=== PATIENT | male | born 1945 | race Caucasian/White ===

== ENCOUNTER 2016-06-30 14:00 | Inpatient (IN) | payer OTHER, MEDICARE, SELFPAY ==
[~2016-06-30] VITALS: Ht 182.9 cm; Wt 116.1 kg
--- NOTE | ~2016-06-30 | HP ---
PATIENT'S NAME: MARLENE WHATLEY [facility] AGE: 71 Y [address] ROOM: [id number] [place], [place] [address] LOCATION: [facility] ADMIT DATE: 06/30/2016 History & Physical DISCHARGE DATE: FAMILY PHYSICIAN: PHYSICIAN, UNKNOWN ATTENDING PHYSICIAN: ZAC WASHINGTON DATE OF SERVICE: CHIEF COMPLAINT: Transient slurred speech and left-sided facial weakness as well as left upper and left lower extremity weakness since this morning. HISTORY OF PRESENT ILLNESS: This is a 71-year-old male who says that this morning he woke up complaining of feeling weak in general, but more on the left side of the face as well as the left upper and left lower extremity. He was also having some on and off slurred speech. When he tried to get out of the bed, he was also feeling lightheaded and he was having this unstable gait, but he did not fall. He did not have any syncope. As the time goes by in the morning, his symptoms worsened. Therefore, he went to the outside facility. The patient went to the [facility] in [place]. Over there, the patient was still complaining of the same symptoms. By that time, it was already more than 4.5 hours since the presentation. Over there, the patient had a CT of the brain performed and the head CT given to me by the provider from over there, was unremarkable. No mass. No bleeding. No herniation. Blood work was also performed over there and the basic metabolic panel was unremarkable. Liver function testing was unremarkable. Urinalysis was also unremarkable. Complete blood cell count was also performed and was also unremarkable except for anemia, hemoglobin 11, hematocrit 34, and platelets low at 104. White blood cell was normal at 6.2. INR was 1.1. D-dimer was 0.28. Sodium was normal at 142. Lactic acid was normal at 0.9. Magnesium was also normal at 2.1. CRP was less than 0.2 which is normal. Glucose 115. Troponin was less than 0.017. CPK and CK-MB also normal at the first set. Urine drug screen was performed and showed positive for tricyclic antidepressant. Urine drug screen was negative, but did show positive for urine tricyclic antidepressant. The patient denies taking any antidepressant except taking the venlafaxine, and then I was notified by the outside facility for transfer here. The outside provider was not sure what was going on. I suspected stroke since he was already out of the tPA window and CT of the brain did not show any hemorrhage or any acute abnormality, I instructed the outside provider to give aspirin one dose 81 mg and a full-dose Lipitor 80 mg one time. Just prior to leaving the outside facility to coming here, the outside provider called me again saying that he was hypothermic. Temperature was 94, but the patient still asymptomatic. His physical examination is unchanged. The patient was not confused. He was alert and oriented x3. He has no chest pain. No PATIENT'S NAME: MARLENE WHATLEY [facility] AGE: 71 Y [address] ROOM: [address] [address] LOCATION: [facility] ADMIT DATE: 06/30/2016 History & Physical DISCHARGE DATE: FAMILY PHYSICIAN: PHYSICIAN, UNKNOWN ATTENDING PHYSICIAN: ZAC WASHINGTON shortness of breath. No chills. No fever. No cough. No palpitation. No diarrhea. No nausea. No vomiting. He has no symptoms except some mild weakness in the left side of the face, left upper, and left lower extremity. His speech was also clear. His blood work did not show any findings to suggest a sepsis. The patient got 1 dose of IV vancomycin and 1 dose of IV Zosyn just for the concern of sepsis due to hypothermia. The patient was put on Maribel Hugger, temperature already improved back to normal and Maribel Hugger was stopped. The patient was later transferred here for higher level of care. The patient also received IV fluid bolus. Blood pressure was low in the high 80s, but the patient still remained asymptomatic. After the bolus, blood pressure had remained in the high 120s without dropping anymore. The patient still remained asymptomatic except the mild left-sided upper and lower extremity weakness and left facial weakness. REVIEW OF SYSTEMS: As mentioned in the history of present illness, all other system review are negative, except those mentioned in the history of present illness. PAST MEDICAL HISTORY: 1. COPD, not on home oxygen. 2. Diabetes type 2. 3. Depression, not suicidal. 4. Prior history of myopericarditis. The patient said that it happened about six months ago and he was treated in [place] and has been asymptomatic and cured according to the patient. 5. Hyperlipidemia. 6. Hypertension. 7. Obstructive sleep apnea, not on home CPAP due to noncompliance. 8. Benign prostatic hypertrophy. 9. Gout. 10. Osteoarthritis. 11. Chronic thrombocytopenia. ALLERGIES: NO KNOWN DRUG ALLERGIES ACCORDING TO THE PATIENT. HOME MEDICATIONS: Currently, has been reconciled. I reviewed the medication list that came with the patient and there was no tricyclic antidepressant. SOCIAL HISTORY: The patient was a former cigarette smoker. He quit about 23 years ago. He used to smoke about half pack per day for 3 years. He is a social alcohol drinker. He denies any alcohol use disorder or alcohol withdrawal. He denies any illegal drug use. PATIENT'S NAME: MARLENE WHATLEY [facility] AGE: 71 Y [address] ROOM: [id number] [place], [place] [address] LOCATION: [facility] ADMIT DATE: 06/30/2016 History & Physical DISCHARGE DATE: FAMILY PHYSICIAN: PHYSICIAN, UNKNOWN ATTENDING PHYSICIAN: ZAC WASHINGTON FAMILY HISTORY: Father from brain tumor at age 85 and mother had diabetes and some kind of heart problem that he could not remember all the details. He said his mother from complication from diabetes at advanced age. PAST SURGICAL HISTORY: Status post tonsillectomy. PHYSICAL EXAMINATION: VITAL SIGNS: The time of my dictation, blood pressure 130/75, MAP 81, temperature 97.5, heart rate 56, respirations 12, and saturation 98% on 1 L nasal cannula. GENERAL APPEARANCE: Alert and oriented x3, in no acute distress. A very pleasant male. HEENT: Pupils are equally round and reactive to light. Extraocular muscles are intact. Nasal turbinates are normal bilaterally. Moist oral mucosa. No oral thrush. NECK: No JVD. No cervical lymphadenopathy. CARDIOVASCULAR: Regular rate and rhythm. Normal S1, S2. No murmur. No rubs. No gallops. RESPIRATORY: Clear. Chest wall nontender to palpation. ABDOMEN: Obese, soft, nontender, nondistended, normal bowel sounds, and no hepatosplenomegaly. No palpable mass. EXTREMITIES: No edema in upper or lower extremities. NEUROLOGIC: Alert and oriented x3. Cranial nerves 2-12 intact. No facial droop. No pronator drift. No tongue deviation upon protrusion. Babinski negative, bilaterally. [id number], intact. Azjk-[id number], intact. Sensation, slightly decreased on the left side of the body including the left side of the face all the way down to the left foot. Muscle strength 4/5 on the left upper extremity and on the left lower extremity. Otherwise, sensation and muscle strength intact in other parts of the body. Proprioception, intact. Vibration, intact. Gait, not assessed, due to fall risk. Deep tendon reflex +2 at the bilateral knees and also at the bilateral biceps. LABORATORY DATA: Lactic acid 1.1. CPK 62, troponin less than 0.04. ProBNP 213. White blood cell 4.1, hemoglobin 11.4, hematocrit 34.5, MCV 91, and platelets 99. Glucose 86, BUN 20, creatinine 1.0, sodium 145, potassium 4.1, chloride 111, CO2 25, and calcium 8.7. Total protein 6.7, albumin 3.4, AST 20, ALT 23, alkaline phosphatase 110, total bilirubin 0.5, direct bilirubin 0.1, phosphorus 3.6, and magnesium 2.2. Anion gap 13.1. GFR more than 60. A1c 6.4. INR 1.1. CK- MB 1.8. Free T4 was 0.9. TSH 1.18. Procalcitonin less than 0.05. PATIENT'S NAME: MARLENE WHATLEY [facility] AGE: 71 Y [address] ROOM: [place] [address] LOCATION: [facility] ADMIT DATE: 06/30/2016 History & Physical DISCHARGE DATE: FAMILY PHYSICIAN: PHYSICIAN, UNKNOWN ATTENDING PHYSICIAN: ZAC [place] IMAGING STUDIES: CT of the brain without contrast from the outside facility was unremarkable. This is a verbal report given to me from the outside facility physician. I will request a report to be sent over here. Chest x-ray on admission, unremarkable. EKG from the outside facility; no acute ischemic changes. First-degree AV block. ASSESSMENT/PLAN: 1. Left upper and lower extremity weakness associated with decreased sensation: Probably, the patient has suffered from CVA. My plan will be to go ahead and get MRI of the brain with and without contrast and MRA of the brain and also MRA of the neck. We will get a transthoracic echo in the morning. PT/OT. Continue aspirin 81 mg p.o. daily and Lipitor 80 mg p.o. daily. Check labs in the morning including a lipid panel and A1c, for precaution. Bedside dysphagia screen. If passed, the patient can have a diabetic diet. I will also check the orthostatic vital signs given the patient felt dizzy upon getting up. Cerebellar stroke will also be in the differential, given the patient does have an unsteady gait and MRI of the brain could show that. For now, I want to rule out the stroke. Depending on the finding of MRI of the brain, Neurology consult could be considered. Further plan depends on clinical course. Continue telemetry monitoring. 2. Transient hypothermia and hypotension: The patient was asymptomatic. The patient does not look septic. Repeat blood work here did not show any finding concerning for infection. The patient also does not have any complaints to suggest infection. Blood culture has been obtained, two sets. We will follow up. Urinalysis and urine culture are also being obtained. UA was clean, from the outside facility. Regarding his positive tricyclic antidepressant in the urine, I am going to repeat another urine drug screen here including testing for the urine and presence of tricyclic antidepressant. The patient is not suicidal. The patient does not remember ever taking any medication that belong to the class of tricyclic antidepressant. If the patient becomes hypotensive and there is concern for sepsis, of course antibiotics and IV fluids resuscitation will be given. For now, the patient is hemodynamically stable. 3. First-degree AV block on the EKG: The EKG here show first-degree AV block and some J-point elevation in the anteroseptal leads. The patient has no chest pain. Cardiac enzyme negative in the first set. I will get an echo in the morning, and monitor the patient closely. If any other arrhythmias are detected, we will treat and also consult Cardiology, if necessary. His electrolytes are currently good with the potassium of PATIENT'S NAME: MARLENE WHATLEY [facility] AGE: 71 Y [address] ROOM: [place] [address] LOCATION: [facility] ADMIT DATE: 06/30/2016 History & Physical DISCHARGE DATE: FAMILY PHYSICIAN: PHYSICIAN, UNKNOWN ATTENDING PHYSICIAN: ZAC WASHINGTON more than 4 and magnesium more than 2. Further plan depends on the clinical course. 4. Regarding his hypertension: Currently, medications are being reconciled. I will continue with holding parameters. Avoid beta-arpit due to the presence of first-degree AV block. Also avoid any other agent that could lower the heart rate. 5. Diabetes type 2: Continue with sliding scale insulin while he is in the hospital and titrate as necessary. 6. Chronic obstructive pulmonary disease: At home, he does not use oxygen. He is currently stable, not in flare. 7. Obstructive sleep apnea: He is noncompliant with the CPAP. He does not know his home setting. I will put him on oxygen nasal cannula, if necessary during the night. 8. Deep vein thrombosis prophylaxis: On Lovenox. Watch the platelets closely. Time spent on the day of admission: 50 minutes was spent including chart review, interviewing the patient, examining the patient, and addressing all the questions and concerns that the patient had, and I also went over the plan of care with the patient and ICU nurses. ZAC WASHINGTON MD CC/modl /[id number] D: [id number] T: 453 HISTORY & PHYSICAL
--- NOTE | ~2016-06-30 | DS ---
PATIENT'S NAME: MARLENE WHATLEY [facility] AGE: 71 Y [address] ROOM: [place] [address] LOCATION: [facility] ADMIT DATE: 06/30/2016 Discharge Summary DISCHARGE DATE: 07/02/2016 FAMILY PHYSICIAN: Divya Oswald MD ATTENDING PHYSICIAN: Jose Armando Beebe PRIMARY DIAGNOSES: 1. Transient ischemic attack. 2. Syncope. 3. Diabetes mellitus, type 2. 4. Essential hypertension. 5. Obstructive sleep apnea. 6. Chronic obstructive pulmonary disease. 7. Osteoarthritis, generalized. 8. Chronic thrombocytopenia. 9. Benign prostatic hypertrophy. 10. First-degree atrioventricular block. OPERATIONS AND PROCEDURES: MRI scan of the brain and MRA scan of the brain were performed on 06/30/2016, negative for any acute process. HISTORY OF PRESENTING ILLNESS AND REASON FOR ADMISSION: Please refer to the H and P dictated on 06/30/2016. HOSPITAL COURSE: The patient was admitted to the hospital as noted above with abrupt symptoms of dysarthria, expressive aphasia, and right-sided weakness. These occurred on the date of his evaluation. He did not actually have a syncopal event on that date. He did, however, describe an episode which had occurred a month earlier in which he was "out for 40 minutes." The initial suspicion was for TIA. MRA and MRI scan were obtained as described above. His medical regimen was optimized with statin therapy and antiplatelet therapy with Plavix. Neurology was consulted. He had physical therapy, occupational therapy, and physiatry assessments. He also had speech therapy evaluation. His symptoms had essentially resolved by day #2. Cardiology was also consulted. Because he had first-degree AV block and one 2 to 3-second pause, it was recommended to perform a Holter monitor at discharge. Reference is made to his previous syncopal episode which was never fully evaluated. By the third day of his hospital stay, it was felt he would be stable enough for discharge to home on an adjusted medication regimen and plans for close clinical followup with his primary care provider and outpatient Holter monitor PATIENT'S NAME: MARLENE WHATLEY [facility] AGE: 71 Y [address] ROOM: [place] [address] LOCATION: [facility] ADMIT DATE: 06/30/2016 Discharge Summary DISCHARGE DATE: 07/02/2016 FAMILY PHYSICIAN: Divya Oswald MD ATTENDING PHYSICIAN: Jose Armando Beebe testing. DISCHARGE INSTRUCTIONS: DIET: ADA 2000 calorie per day as tolerated. ACTIVITY: As tolerated. MEDICATIONS: 1. Allopurinol 100 mg p.o. q.h.s. 2. Ascorbic acid 500 mg p.o. q.h.s. 3. Atorvastatin 80 mg p.o. q.h.s. 4. Plavix 75 mg p.o. daily. 5. Ketoconazole cream applied topically b.i.d. 6. Losartan 50 mg p.o. q.h.s. 7. Terazosin 2 mg p.o. q.h.s. 8. Venlafaxine 75 mg p.o. q.h.s. 9. Acetaminophen 650 mg p.o. q.6 hours p.r.n. 10. Tramadol 100 mg p.o. q.6 hours p.r.n. pain. 11. DuoNeb t.i.d. p.r.n. 12. [place] 500 mcg suppository daily p.r.n. 13. Symbicort 160/4.5 one puff p.o. b.i.d. 14. Nitroglycerin p.r.n. 15. Metformin 1700 mg p.o. q.h.s. 16. Combivent Respimat one puff p.o. t.i.d. p.r.n. FOLLOWUP: He will follow up with his primary care physician in 7 to 10 days. He will have follow up with Dr. Huynh, child protective investigator, in 7 to 10 days. He will have Holter monitor x48 hours at discharge, to be followed up by Cardiology. CONDITION ON DISCHARGE: Good. Total time spent on discharge process is 45 minutes. MD COTY PLASENCIA/irving /[id number] d: 07/03/16 1342 t: 07/03/16 1642, DISCHARGE SUMMARY
--- NOTE | ~2016-06-30 | CON ---
PATIENT'S NAME: MARLENE HORNE [facility] AGE: 71 Y [address] ROOM: [id number] [place] [id number] LOCATION: [facility] ADMIT DATE: 06/30/2016 Consultation DISCHARGE DATE: FAMILY PHYSICIAN: Divya Oswald MD ATTENDING PHYSICIAN: ZAC WASHINGTON DATE OF CONSULTATION: 07/01/2016 REFERRING PHYSICIAN: Coleen Huynh MD HISTORY OF PRESENT ILLNESS: Mr. Horne is a very pleasant 71-year-old male patient with a history of mild diabetes mellitus and hypertension. He states that he was in usual state of health, getting his young children ready to go to school, when he suddenly yesterday, Tuesday, noted that he had some difficulty getting words out. It was basically associated with his slurring of speech but not particularly with difficulty with language per se. He said "my words were like I was drunk." He had perhaps a very mild left facial droop, it has persisted even on his transfer here, but now this has resolved. At that time, also, he noted that his walking was off and he was having a staggering of his gait. He denied any particular weakness to his extremities. At baseline, he does have a bit of difficulty with hand chief wharfinger due to a trigger finger on the left hand, but otherwise had normal power on examination. His leg power on the left was also normal. The patient denied any headaches, visual field deficits, numbness to the limbs. He denied again any weakness to his limbs. Yesterday morning, he did go to the emergency room at [place], but he was not a candidate for tPA based upon his symptoms were subtle and also resolving, as well as no evidence of any more severe cortical sign such as aphasia. The patient was then transferred over here for further neurologic management. PRIOR MEDICAL HISTORY: He denies any history of stroke. He denies any history of VA. He has had a workup of pain for chest pain in the past, we have no other information concerning coronary artery disease. SOCIAL HISTORY: He uses alcohol only on a rare occasion, nothing on a usual basis. He stopped smoking 30 years ago. He does not use any illicit drugs. He is a remarried and he has a young children from his second marriage, two children, one 14 years old, one child is 12 years old. He has other children from prior marriage. A total of 10 children. 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 He had plan to go into the pre- study in the 1970s, but he did not and decided to go into language studies. He completed a master's degree for this and is fluent in Latin, Marshallese, Martiniquais, and Australian. He was born in [place], [place] and lives currently in PATIENT'S NAME: MARLENE HORNE [facility] AGE: 71 Y [address] ROOM: [place] [address] LOCATION: [facility] ADMIT DATE: 06/30/2016 Consultation DISCHARGE DATE: FAMILY PHYSICIAN: Divya Oswald MD ATTENDING PHYSICIAN: ZAC WASHINGTON. He gets his medications from the [facility] and [place]. FAMILY HISTORY: Father of a glioma mass in 1985. His mother from complications of diabetes. ALLERGIES: HE HAS NO KNOWN DRUG ALLERGIES. CURRENT HOME MEDICATIONS: Concerning his diabetes and hypertension is follows, 1. Allopurinol 100 mg p.o. at bedtime. 2. Alprostadil to the urethra 500 mcg p.r.n. 3. Ascorbic acid 500 mg at bedtime. 4. Lipitor 40 mg p.o. at bedtime, this dosage has been increased to 80 mg upon this admission. 5. Symbicort 160-4.5 mcg inhaler two puffs inhaled twice daily. 6. Ibuprofen 200 mg tablets, total of 600 mg p.o. q.6 hours p.r.n. pain. 7. Ipratropium/albuterol 0.5/2.5 uses in the nebulizer treatment, one inhalation three times a day p.r.n. 8. Losartan 50 mg p.o. at bedtime. 9. Metformin 850 mg tablets, a total dose of 1700 mg p.o. at bedtime. 10. Nitroglycerin sublingual tablets 0.4 mg tablet q.5 minutes p.r.n. chest pain. 11. Terazosin 2 mg tablet at bedtime. 12. Venlafaxine 37.5 mg tablets, 75 mg p.o. at bedtime. 13. Tramadol 100 mg p.o. q.6 hours p.r.n. pain. REVIEW OF SYSTEMS: This is a 71-year-old male patient with a history of mild diabetes and hypertension. No history of a stroke who presented with slurring of his speech and a mild left facial droop. This lasted a number of hours perhaps up to 3 hours, but the symptoms had progressively resolved in the emergency room in [place], he was transferred here for further workup, there was no evidence of any dysarthric speech presently. Current imaging workup has been negative. The rest of a 10-point review of systems is negative. PHYSICAL EXAMINATION: Vital Signs: The patient's pulse is 65 and regular, respiration rate 12, blood pressure 152/71, temperature is 97.4. NEUROLOGIC: Cranial nerves 2 through 12 was intact. There is normal facial symmetry and sensation. The neck is supple on flexion and extension. The power of the bilateral upper and lower extremities is full at 5/5 grade. He has a slight hand chief wharfinger difficulty due to a trigger finger, but this does not PATIENT'S NAME: MARLENE HORNE [facility] AGE: 71 Y [address] ROOM: [address] [place], [place] [address] LOCATION: [facility] ADMIT DATE: 06/30/2016 Consultation DISCHARGE DATE: FAMILY PHYSICIAN: Divya Oswald MD ATTENDING PHYSICIAN: ZAC WASHINGTON appear to show any weakness and there is no pronator drift. Rapid alternating hand movements and [id number] testing were normal and there was no evidence of any dysmetria. Normal sensory exam to light touch and sharp touch throughout the extremities, and torso reflexes were symmetric at +1 in the upper and lower extremity reflexes tested. Gait was not tested presently. IMPRESSION: The patient's symptoms were fairly benign and rapidly improved, there were concerns which were associated with some mild facial droop on the left, really some dysarthric speech, but there was no evidence to suggest that he had a true aphasia with difficulty in discerning objects, parts of objects, or situations. He is doing well now and he is back to his baseline. With the knowledge of the MRI of the brain as well as MRA of the brain and neck are within normal limits, these symptoms are likely associated with a probable transient ischemic attack. Thus, make some minor adjustments to his current medications, by changing his aspirin to Plavix 75 mg daily. We will also increase the Lipitor to 80 mg daily. His current profile with his cholesterol appears to be good and his LDL is excellent. Check basic hemoglobin A1c to see how his diabetic management is going. Certainly, he does have good knowledge and insight into diabetic management in discussions with the patient. He is on medication, metformin, and he believes that his diabetes is fairly under control, but I do not know if he follows his fingerstick glucose well, certainly good control of diabetic, risk factors, as well as following his blood pressure to make sure the systolic blood pressure is less than 130 mmHg. Long-term best assurance of the diminishing repeat TIAs, we will continue his basic stroke workup here in the hospital with a carotid ultrasound study, and hopefully, the patient will have a short stay here in the hospital. MD JUAN GARCIA/irving /[id number] d: 07/01/16 1726 t: 07/13/16 1544, CONSULTATION REPORT
--- NOTE | ~2016-06-30 | CON ---
PATIENT'S NAME: MARLENE HORNE [facility] AGE: 71 Y [address] ROOM: [address] [address] LOCATION: T ADMIT DATE: 06/30/2016 Consultation DISCHARGE DATE: FAMILY PHYSICIAN: Divya Oswald MD ATTENDING PHYSICIAN: ZAC WASHINGTON DATE OF CONSULTATION: 07/01/2016 REFERRING PHYSICIAN: Coleen Huynh MD Dear Dr. Washington: Thank you for asking me to see Mr. Horne, who is a 71-year-old male patient, who around 5:30 yesterday morning thought that he was wobbly initially. He drove the kids to school, and he was getting progressively worse with some weakness involving the left side of the body as well as some slurring of speech, so he went to the emergency room by 9:15 in the morning. He was transferred here by air ambulance. His symptoms mostly resolved when he woke up around 3:30 in the morning for vital signs. During the time when he was here, his EKG was done which showed first-degree AV block and his monitoring showed that there were three consequent PACs with dropped QRS complexes at the rate of 150 beats a minute. At that time, he had R-to-R interval that was about 2.8 seconds. This is the main reason for consultation. The patient has no prior history of MD or angina. He has, however, been given nitroglycerin to use. He has taken the nitroglycerin about 2 months back for chest pain, which resolved at that time. It is interesting because he did have a cath done in 2014 at [facility] in [place]. At that time, there was some concern about his heart being out of rhythm. He was diagnosed to have pericardial inflammation. He was sent home at that time with medical treatment. For the past year and a half, he has been in functional class III. He does get short of breath going up and down flights of stairs. He thinks it is because of his COPD. He denies paroxysmal nocturnal dyspnea or orthopnea. He has had not had any trouble with lightheadedness, but had a syncopal episode one month ago along with some shortness of breath. He got into his truck and had passed out for about 40 minutes. When he came to, he went to the hospital locally and at that time, did not find any abnormalities. He has not had that recur. He denies any palpitations or ankle swelling. The patient has history of type 2 diabetes. He denies hypertension, elevated cholesterol, tobacco abuse which he quit years ago. There is no family history of premature coronary artery disease. There is no history of MD or rheumatic fever. He does have a history of heart murmur. There is no congestive heart failure, and he has no known atrial PATIENT'S NAME: MARLENE HORNE [facility] AGE: 71 Y [address] ROOM: [place] [address] LOCATION: [facility] ADMIT DATE: 06/30/2016 Consultation DISCHARGE DATE: FAMILY PHYSICIAN: Divya Oswald MD ATTENDING PHYSICIAN: ZAC WASHINGTON diagnosed. His cardiac MRI today reveals no lesions, and there are no carotid lesions or intracranial lesions to account for his symptoms. MEDICATIONS: 1. Clopidogrel 75 mg a day. 2. Atorvastatin 80 mg every day. 3. Tylenol p.r.n. 4. Enoxaparin 40 mg subcu. 5. Aspirin 81 mg a day. 6. Glucagon. 7. Dextrose. 8. Glucose. 9. Insulin. ALLERGIES: NO KNOWN DRUG ALLERGIES. PAST MEDICAL HISTORY: 1. COPD, currently not on home oxygen. 2. Mild depression. 3. History of myopericarditis. 4. Sleep apnea. 5. Benign prostatic hypertrophy. 6. DJD. 7. Chronic thrombocytopenia. SOCIAL HISTORY: The patient is . 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 He is an ex-smoker having quit 23 years ago. He does not drink any alcohol. His appetite and weight are stable. FAMILY HISTORY: No premature coronary artery disease. REVIEW OF SYSTEMS: A 12-point review of systems reveal: 1. Sinus problems. 2. Cough with green phlegm. 3. Gout. 4. Some concern with his prostate. 5. Varicose veins in his legs. 6. Nocturia 4-6 times a night at least. PHYSICAL EXAMINATION: VITAL SIGNS: On examination, his blood pressure is 148/70, heart rate is in PATIENT'S NAME: MARLENE HORNE [facility] AGE: 71 Y [address] ROOM: [place] [address] LOCATION: [facility] ADMIT DATE: 06/30/2016 Consultation DISCHARGE DATE: FAMILY PHYSICIAN: Divya Oswald MD ATTENDING PHYSICIAN: ZAC WASHINGTON the 70s and regular, respiration is 18, and afebrile. HEENT: Normal. NECK: Supple with no JVD, thyromegaly, lymphadenopathy, or carotid bruit. CARDIAC: PMI is not well located. First and second heart sounds are regular. There are no added sounds or murmurs. CHEST: Clear to auscultation. ABDOMEN: Obese, soft. EXTREMITIES: Reveal no edema. CENTRAL NERVOUS SYSTEM: Intact. ASSESSMENT: A 71-year-old hypertensive, diabetic patient with transient ischemic attack- like symptoms involving the left side of his body, slurred speech, and being wobbly which resolved within 24 hours. His MRI and MRA are negative for any central nervous system lesions or extracranial or intracranial vascular abnormalities. His EKG shows first-degree AV block with some PACs occurring at the rate of 150 beats per minute without any QRS complexes. This raises the possibility that he may have underlying atrial fibrillation. He also has a history of chest pain, but had also recently a cardiac catheterization done and myocarditis diagnosed. He has had a passing-out spell about a month ago. The etiology of this is unclear. He was out for 40 minutes. He is currently in functional class III. RECOMMENDATIONS: We will get hold of all the records he has from [facility] and look at his echo before making any other additional plans. Again, I appreciate this opportunity to participate in the care of Mr. Horne. MD REID GUSMAN/irving /[id number] d: 07/01/162008 t: 07/13/16 1326, CONSULTATION REPORT
--- NOTE | ~2016-06-30 | ECHO ---
Transthoracic Echocardiography Report (TTE) Demographics Patient Name MARLENE WHATLEY Date of Study 07/01/2016 Patient Number [id number] Visit Number [id number] Date of 1945 Room Number G6221 Accession Number [id number] Gender Male Age 71 year(s) Referring Concepción Hyman MD Tape Keller Operator Silver Fraser T Physician Physician Interpreting Amina Horne Soil [employer] Plant Scientist Physician Supervising Ordering Physician Concepción Hyman MD, MD/MLP Nurse Stress Electrical Systems Drafter Conclusions Summary The estimated left ventricular ejection fraction is 60% with normal WM.Moderate concentric left ventricular hypertrophy.Normal internal dimensions. The left atrium is mildly dilated. Increased LA pressures. MAC. Moderate MR. Moderate calcification of the mitral valve. The mitral regurgitation jet is anteriorly directed . Mild tricuspid regurgitation by color Doppler. There is moderate pulmonary hypertension. The pulmonary pressure (RVSP) is 44 mmHg. The ascending aorta appears mildly dilated. The maximum diameter measures 4.0 cm. Procedure Type of Study TTE procedure:2D Echocardiogram, M-Mode, Doppler . Procedure Date Date: 07/01/2016 Start: 09:29 AM Study Location: Inpatient Portable Technical Quality: Adequate visualization Indications:Bradycardia. Patient Status: Routine HR: 66 bpm BP: 151/82 mmHg M-Mode/2D Measurements LV Diastolic Dimension: 3.32 cm LV Systolic Dimension: 2.35 cm LV Septum Diastolic: 1.85 cm LV PW Diastolic: 1.7 cm AO Root Dimension: 2.3 cm Cardiac Output: 9.14 l/min AV Cusp Separation: 1.9 cm RV Diastolic Dimension: 3.83 cm LA volume: 76 ml LVOT: 2 cm LVOT VTI: 44.1 cm TAPSE: 2.8 cm LV Stroke volume: 138.47 ml Doppler Measurements AV Peak Velocity: 1.95 m/s MV Peak E-Wave: 1.5 m/s AV Peak Gradient: 15.21 mmHg MV Peak A-Wave: 1.32 m/s AV Mean Gradient: 12 mmHg MV E/A Ratio: 1.14 LVOT Peak Velocity: 1.83 m/s MV P1/2t: 91 msec TR Gradient:34.11 mmHg PV Peak Velocity: 0.99 m/s Estimated RAP:10 mmHg PV Peak Gradient: 3.94 mmHg Estimated RVSP: 44 mmHg Estimated PASP: 44.11 mmHg E' Septal Velocity: 0.05 m/s A' Septal Velocity: 0.07 m/s E' Lateral Velocity: 0.07 m/s A' Lateral Velocity: 0.1 m/s Findings Left Ventricle Moderate concentric left ventricular hypertrophy with normal internal dimensions,EF and WM. Right Ventricle Normal right ventricle structure and function. Left Atrium The left atrium is mildly dilated.Inreased LA pressures. Right Atrium Normal right atrial size. Mitral Valve Moderate mitral regurgitation by color Doppler. Moderate calcification of the mitral valve. MAC. Aortic Valve There is trivial aortic regurgitation by color Doppler. The aortic valve is moderately sclerotic. Tricuspid Valve Mild tricuspid regurgitation by color Doppler. There is moderate pulmonary hypertension. The pulmonary pressure (RVSP) is 44 mmHg. Pulmonic Valve Trivial pulmonic valve regurgitation by color Doppler. Pericardial Effusion No evidence of pericardial effusion. Miscellaneous The ascending aorta appears mildly dilated. The maximum diameter measures 4.0 cm. Pleural Effusion No evidence of pleural effusion. Contractility Score LV regional wall motion:(0-Non visualized 1-Normal 2-Hypokinesis 3-Akinesis 4-Dyskinesis 5-Aneurysm) Signature dtt: Coleen Huynh dtd: 07/01/16 0929 Physician Self Edit
[2016-06-30 16:29] LABS: BASOPHIL % 0.7 %; EOSINOPHIL # 0.3 K/uL (0.0-0.5); EOSINOPHIL % 6.6 %; HEMATOCRIT 34.5 % (37.0-53.0); HEMOGLOBIN 11.4 g/dL (11.0-16.0); IMMATURE GRANULOCYTE % 0.2 %; LYMPHOCYTE % 25.6 %; MCH 30.1 pg (27.0-34.0); MONOCYTE # 0.3 K/uL (0.0-1.0); MONOCYTE % 6.4 %; MPV 10.1 fl (9.4-12.4); NEUTROPHIL # (ANC) 2.5 K/uL (1.4-9.0); NEUTROPHIL % 60.5 %; NRBC % 0 /100WBC (0-0.00); PLATELET COUNT 99 K/uL (150-450); RBC 3.79 M/uL (3.50-5.50); RDW-CV 13.9 % (11.9-14.6); WBC 4.1 K/uL (4.0-11.0)
[2016-06-30 16:41] LABS: INR - (THERAPEUTIC) 1.1 (0.9-1.1); PROTIME 11.2 SECONDS (9.6-11.1)
[2016-06-30 16:52] LABS: ALBUMIN 3.4 gm/dL (3.5-5.0); ALK PHOS 110 IU/L (33-138); ALT 23 IU/L (12-78); ANION GAP 13.1 (10.0-19.0); AST 20 IU/L (10-40); BLOOD UREA NITROGEN 20 mg/dL (6-24); CALCIUM 8.7 mg/dL (8.5-10.5); CHLORIDE 111 mMol/L (96-110); CO2 25 mMol/L (22-32); CPK 62 IU/L (35-332); ESTIMATED GFR (MDRD EQUATION) > 60; MAGNESIUM 2.2 mg/dL (1.3-2.6); PHOSPHORUS 3.6 mg/dL (2.5-4.9); POTASSIUM 4.1 mMol/L (3.7-5.1); SODIUM 145 mMol/L (135-145); TOTAL BILIRUBIN 0.5 mg/dL (0.0-1.5); TOTAL PROTEIN 6.7 g/dL (6.0-8.4)
[2016-06-30 20:49] LABS: AMPHETAMINE NEGATIVE (NEGATIVE); BARBITURATE NEGATIVE (NEGATIVE); COCAINE NEGATIVE (NEGATIVE); OPIATES NEGATIVE (NEGATIVE)
[2016-07-01] MEDS ORDERED: DUONEB INH (09:14)
[2016-07-01] MEDS ORDERED: SYMBICORT 16010.2 GM INH (09:16)
[2016-07-01] MEDS ORDERED: MUSE500 MCG UR (09:16)
[2016-07-01] MEDS ORDERED: COZAAR100 MG PO (09:17)
[2016-07-01] MEDS ORDERED: NITROSTAT0.4 MG SL (09:18)
[2016-07-01] MEDS ORDERED: LIPITOR80 MG PO (09:20)
[2016-07-01] MEDS ORDERED: ZYLOPRIM100 MG PO (09:20)
[2016-07-01] MEDS ORDERED: TYLENOL325 MG PO (09:20)
[2016-07-01] MEDS ORDERED: NIZORAL30 GM TOP (09:22)
[2016-07-01] MEDS ORDERED: HYTRIN **IA 9/2 MG PO (09:23)
[2016-07-01] MEDS ORDERED: GLUCOPHAGE850 MG PO (09:23)
[2016-07-01] MEDS ORDERED: ULTRAM50 MG PO (09:24)
[2016-07-01] MEDS ORDERED: VENLAFAXINE H37.5 MG PO (09:24)
[2016-07-01] MEDS ORDERED: ASCORBIC ACID500 MG PO (09:25)
[2016-07-01] MEDS ORDERED: ADVIL200 MG PO (09:25)
[2016-07-01] MEDS ORDERED: COMBIVENT RESPIM4 GM INH (09:25)
[2016-07-02] MEDS ORDERED: PLAVIX75 MG PO (13:56)
== END 2016-07-02 14:57 | disposition disaster alternative care site (69) | DRG 69 ==
LOC: GNTU 14:50 → GICU 14:50 → GNTU 07-01 12:19
PROVIDERS: ADMIT Internal Medicine
DX: G45.9 Transient cerebral ischemic attack, unspecified (principal); D69.6 Thrombocytopenia, unspecified; J44.9 Chronic obstructive pulmonary disease, unspecified; I44.0 Atrioventricular block, first degree; I10 Essential (primary) hypertension; E11.9 Type 2 diabetes mellitus without complications; G47.33 Obstructive sleep apnea (adult) (pediatric); Z91.19 Patient's noncompliance with other medical treatment and regimen; F32.9 Major depressive disorder, single episode, unspecified; E78.5 Hyperlipidemia, unspecified; N40.0 Benign prostatic hyperplasia without lower urinary tract symptoms; M10.9 Gout, unspecified; Z87.891 Personal history of nicotine dependence; Z79.82 Long term (current) use of aspirin; Z23 Encounter for immunization; R55 Syncope and collapse
CPT/HCPCS: A9577; G0009; G0480; J1650; J7030

== ENCOUNTER → 2016-06-30 | Outpatient (CLI) | payer OTHER, MEDICARE ==
[~2016-06-30] MED LIST: ADVIL200 MG PO; ASCORBIC ACID500 MG PO; ASPIRIN (CHILDR81 MG PO; COMBIVENT RESPIM4 GM INH; COZAAR100 MG PO; DELTASONE20 MG PO; DOXYCYCLINE100 MG PO; DUONEB INH; FEOSOL325 MG PO; GLUCOPHAGE850 MG PO; HYTRIN **IA 9/2 MG PO; LIPITOR80 MG PO; MUSE500 MCG UR; NITROSTAT0.4 MG SL; NIZORAL30 GM TOP; PLAVIX75 MG PO; PROTONIX40 MG PO; SYMBICORT 16010.2 GM INH; TYLENOL325 MG PO; ULTRAM50 MG PO; VENLAFAXINE H37.5 MG PO; ZITHROMAX250 MG PO; ZYLOPRIM100 MG PO
== END | disposition disaster alternative care site (69) ==
LOC: GAIR 14:11
DX: I44.0 Atrioventricular block, first degree (principal); E11.9 Type 2 diabetes mellitus without complications; F32.9 Major depressive disorder, single episode, unspecified; E78.5 Hyperlipidemia, unspecified; M19.90 Unspecified osteoarthritis, unspecified site; I10 Essential (primary) hypertension; G47.30 Sleep apnea, unspecified; R41.82 Altered mental status, unspecified; R47.81 Slurred speech; J44.9 Chronic obstructive pulmonary disease, unspecified; Z79.899 Other long term (current) drug therapy; Z88.8 Allergy status to other drugs, medicaments and biological substances
CPT/HCPCS: A0422; A0431; A0436

== ENCOUNTER 2016-12-23 13:00 | Inpatient (IN) | payer OTHER, MEDICARE ==
[~2016-12-23] VITALS: Ht 180.3 cm; Wt 112.0 kg
--- NOTE | ~2016-12-23 | ESTC ---
Cardiac Perfusion Imaging Demographics Patient Name CHACORTA Albrecht Gender Male Patient Number [id number] Race Visit Number [id number] Ethnicity Corporate ID Room Number G6310 Accession Number [id number] Height 71 inches Date of 1945 Weight 254 pounds [place] BUENO Interpreting Dary Hsieh Date of study 12/24/2016 Physician Supervising /TARI PATEL Technologist Tara Gong MD Ordering Physician Joe Segundo Stress A emergency medical technician Stress ECG Reading Joe Segundo Nurse Lita Albrecht Physician A MD LENORA Robles The procedure was explained in detail to the patient. Risks, complications and alternative treatments were reviewed. Written consent was obtained. Medications Reviewed with Patient prior to Procedure. Procedure Procedure Type: Nuclear Stress Test:Pharmacological, Cardiolite Stress Test Procedure Start time: 12/24/2016 08:30 Indications: Chest pain. Risk Factors The patient risk factors include:obesity, cerebrovascular disease, former tobacco use, treated hypercholesterolemia, treated hypertension, orally-treated diabetes mellitus, chronic lung disease and dyslipidemia. Conclusions Summary Perfusion Images: The overall quality of the study is good. Left ventricular cavity is noted to be normal on the stress and rest studies. There is no evidence of abnormal lung activity. The right ventricle is not visualized and cannot be assessed. Stress SPECT images and Rest SPECT images demonstrate homogenous tracer distribution throughout the myocardium except for a minimal decrease uptake in the area involving the chano-septum on stress images suggesting equivocal small area of ischemia in anterior septal wall . Gated SPECT imaging reveals normal myocardial thickening and wall motion. The left ventricular ejection fraction was calculated to be 71%. Impression ECG portion of the stress test is clinically negative for ischemia by diagnostic criteria. Images reveal a small sized area of equivocal anteroseptal wall ischemia. Gated wall motion is normal with LVEF 71%. This is a low risk stress test. Stress Protocols Resting ECG Sinus bradycardia. PVCs Pre-stress physical exam: Patient assessed by Dr Diaz prior to testing. Stress Protocol:Pharmacologic Predicted HR: 148 bpm ECG Findings No ECG changes suggestive of ischemia. Arrhythmias No new rhythm abnormality. Symptoms Chest tightness. Stress Interpretation Appropriate hemodynamic response to Lexiscan. No significant ST-T wave changes with Lexiscan. ECG portion is negative for ischemia by diagnostic criteria. Imaging Results Summed scores - Summed stress score: 9 - Summed rest score: 5 - Summed difference score: 4 Stress ejection Ejection fraction:71 % EDV :123 ml ESV :36 ml Stroke volume :87 ml LV mass :137 gr Imaging Protocols Rest Stress Isotope:Tc99m Sestamibi IV Isotope: Tc99m Sestamibi IV Isotope dose:15.3 mCi Isotope dose:44.8 mCi Date:12/24/2016 06:53 Date:12/24/2016 09:15 Technique: SPECT Technique: Gated Supine SPECT Supine IV remains in place after procedure. Scan Time:45-60 minutes post Scan Time:45-60 minutes post injection injection Procedure Medications - Regadenoson (Lexiscan) 0.4 mg IV over 10-15 sec. I.V. 0.4 mg. Medical History Admission Data Admission date: 12/23/2016 Admission Time: 14:53 Hospital Status: Inpatient. Signatures dtt: ART PAIZ dtd: 12/24/16 0830 Physician Self Edit
--- NOTE | ~2016-12-23 | CON ---
PATIENT'S NAME: MARLENE WHATLEY [facility] AGE: 71 Y [address] ROOM: [place] [address] LOCATION: GPCU ADMIT DATE: 12/23/2016 Consultation DISCHARGE DATE: FAMILY PHYSICIAN: CLARK HERBERT MD ATTENDING PHYSICIAN: Ted GONZALEZ REQUESTING PHYSICIAN: Hospitalist Service. REASON FOR CONSULTATION: Angina. HISTORY OF PRESENT ILLNESS: This is a 71-year-old gentleman, who lives in the [place] area. He says that first he got sick last Tuesday and he developed nausea, lack of appetite, and weakness with minor exertion. He thought he had some type of flu. The next day because his symptoms did not improve, he went to the emergency room. There, the main complaint appeared to be shortness of breath on exertion, so it was treated like COPD exacerbation with nebulizer and discharged home on antibiotics and steroids. He says that he took these medications religiously. At that time, his hemoglobin was 12. He continued to feel weak. The next day, he had large tarry stool. He thought maybe he had some gastric problems, but did not contact his doctor, continued to take all his medications which include Plavix that was prescribed for transient ischemic attack. He got progressively worse and went back to [facility] on the and then evaluation showed that his hemoglobin at that point was 7 g, so they made arrangements to transfer him here and start transfusing him. The patient says that he is experiencing some tightness at the base of his sternum and continues to have some shortness of breath as well. PAST MEDICAL HISTORY: Shows type 2 diabetes, hypertension, dyslipidemia, and as mentioned COPD. There is a diagnosis of coronary artery disease with 30% stenosis in the LAD identified on catheterization in March 2015. He also has sleep apnea, fatty liver, erectile dysfunction, gout, and osteoarthritis. SURGICAL HISTORY: Only tonsillectomy. SOCIAL HISTORY: The patient is . He is an ex-smoker and does not abuse alcohol. FAMILY HISTORY: His father had glioblastoma. His mother was diabetic. REVIEW OF SYSTEMS: PATIENT'S NAME: MARLENE WHATLEY [facility] AGE: 71 Y [address] ROOM: [address] [address] LOCATION: GPCU ADMIT DATE: 12/23/2016 Consultation DISCHARGE DATE: FAMILY PHYSICIAN: CLARK HERBERT MD ATTENDING PHYSICIAN: Ted GONZALEZ Review of systems was performed. Positives mentioned in the history of present. PHYSICAL EXAMINATION: VITAL SIGNS: The patient is 5 feet 11 inches and weighs 112.1 kg. Blood pressure is 126/60, heart rate of 60. He is afebrile. GENERAL: He is alert and oriented. He looks pale. SKIN: Warm and dry. He is being transfused 1 unit of packed red cells. HEAD: Normocephalic, atraumatic. NECK: Supple. There is no jugular venous distention. No carotid bruits. LUNGS: Clear. HEART: Distant regular first and second heart sounds. ABDOMEN: Mildly obese, nontender. EXTREMITIES: Lower extremities: No peripheral edema. DIAGNOSTICS DATA: Electrocardiogram shows sinus rhythm, premature ventricular contractions, left ventricular hypertrophy. No acute changes. Troponin is negative. X-ray: Normal heart size and normal vasculature. Pro-BNP is 2500. Hemoglobin 7.5. OUTPATIENT MEDICATIONS: 1. Ipratropium. 2. Albuterol. 3. DuoNeb three times a day as needed. 4. Alprostadil 500 mcg daily for erectile dysfunction. 5. Symbicort 160 two puffs twice a day. 6. Losartan 50 mg daily. 7. Nitroglycerin 0.4 as needed. 8. Acetaminophen 325, 650 mg every 6 hours for pain. 9. Atorvastatin 80 mg daily. 10. Allopurinol 100 mg daily. 11. Metformin 1700 mg at bedtime. 12. Terazosin 2 mg at bedtime. 13. Venlafaxine 37.5 mg capsules at bedtime. 14. Tramadol 100 mg every 6 hours for pain. 15. Ascorbic acid 500 mg daily. 16. Combivent 1 puff 3 times a day. 17. Clopidogrel 75 mg daily. PATIENT'S NAME: MARLENE WHATLEY [facility] AGE: 71 Y [address] ROOM: [id number] [place] [id number] LOCATION: GPCU ADMIT DATE: 12/23/2016 Consultation DISCHARGE DATE: FAMILY PHYSICIAN: CLARK HERBERT MD ATTENDING PHYSICIAN: Ted GONZALEZ 18. Prednisone 20 mg daily. 19. Azithromycin 250 mg daily. 20. Doxycycline 100 mg twice a day. IMPRESSION: The patient presents with acute anemia from blood loss. He has some angina at rest which could be just from mismatch of supply and demand. He does not appear to have an acute coronary syndrome. We will continue transfusion. We will do a nuclear stress test in a.m. We will check an echocardiogram, appears to have some heart failure, probably diastolic. Thank you for allowing me to participate in the care of your patient. I will follow along with you. ARSENOTISCLIFFORD DAVID MD PE/modtuyet /[id number] d: 12/24/166 t: 12/27/16 1119, CONSULTATION REPORT
--- NOTE | ~2016-12-23 | HP ---
PATIENT'S NAME: MARLENE WHATLEY [facility] AGE: 71 Y [address] ROOM: [address]6310 [place], [place] [address] LOCATION: [facility] ADMIT DATE: 12/23/2016 History & Physical DISCHARGE DATE: FAMILY PHYSICIAN: PHYSICIAN, UNKNOWN ATTENDING PHYSICIAN: Ted GONZALEZ DATE OF SERVICE: CHIEF COMPLAINT: GI bleed. HISTORY OF PRESENT ILLNESS: The patient is a 71-year-old gentleman with past medical history of diabetes mellitus type 2, COPD, BPH, and history of TIA, who presents here with low hemoglobin from [place]. The patient reports that on December 19, 2016, he was feeling dyspnea on exertion and chest discomfort on exertion. The patient went to primary care physician and was treated with bronchodilator with some improvement in symptom. The patient was discharged on doxycycline and prednisone and bronchodilator. However, the patient reports that after he was discharged, he did not feel much better and also reports one episode of tarry stool on Tuesday. He reports that his symptoms did not improve, and he continued to have dyspnea on exertion and chest discomfort on exertion. He reports his chest discomfort as pressure-like, nonradiating, and rates it 2- 3/10 and resolved with rest. The patient went to the emergency department with the same complaint today at [place] and was found to have hemoglobin of 7. Initial workup at the hospital including EKG and cardiac enzymes including troponin was negative. The patient was given initially 4 pills of 81 mg aspirin on presentation. Of note, the patient takes Plavix and also takes 81 mg of aspirin as outpatient due to history of TIA. The patient has already taken the Plavix 81 mg and also received 4 doses of baby aspirin. The patient denies any productive cough, fever, chills, nausea, vomiting, abdominal pain, and diarrhea. Last stool movement was on Tuesday and it was tarry. MEDICAL HISTORY: Diabetes mellitus type 2, COPD, BPH, and TIA. PAST SURGICAL HISTORY: Tonsillectomy and has had coronary angiogram done [place] a year and half ago with apparently no coronary lesion and was told it was possibly heart failure and was discharged on Lasix. FAMILY HISTORY: Father had history of GBM. Mother has diabetes mellitus. The patient currently does not smoke. Last smoke was 25 years ago and occasional alcohol PATIENT'S NAME: PATZEL, [facility] AGE: 71 Y [address] ROOM: [place] [address] LOCATION: [facility] ADMIT DATE: 12/23/2016 History & Physical DISCHARGE DATE: FAMILY PHYSICIAN: PHYSICIAN, UNKNOWN ATTENDING PHYSICIAN: Ted GONZALEZ. 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 MEDICATIONS: Currently being reconciled. REVIEW OF SYSTEMS: All systems have been reviewed and are negative except for what I mentioned. PHYSICAL EXAMINATION: VITAL SIGNS: The patient is afebrile, blood pressure 120/57, heart rate of 70, respiratory rate of 18, and saturating 94% on 2 L oxygen. GENERAL APPEARANCE: The patient appears pale. HEAD: Normocephalic, atraumatic. EYES: Extraocular muscles intact. NOSE: No nasal discharge. MOUTH: No mouth discharge. EARS: No ear discharge. CHEST: Clear to auscultation bilaterally. HEART: Regular rate and rhythm with no murmurs, rubs, or gallops. ABDOMEN: Soft, nontender, and nondistended. Bowel sounds present. SKIN: Warm to touch. EXTREMITIES: No edema. BARKEEPER: Alert and awake. Motor and sensory grossly intact. LABORATORY DATA: Labs drawn at outside hospital shows sodium of 140, potassium of 3.4, CO2 of 19, BUN of 25, creatinine 1.05, blood glucose of 75. White blood cell count of 6.8, hemoglobin is 7, and platelets of 116. EKG shows normal sinus with first-degree AV block. No ischemic ST and T-wave changes. Cardiac enzymes x1 was negative at the outside hospital. ASSESSMENT AND PLAN: 1. Acute blood loss anemia. Etiology most likely upper gastrointestinal bleed as the patient takes aspirin and Plavix and currently on doxycycline and prednisone. We will start the patient on Protonix 40 mg IV b.i.d. To type and screen. To check serial H and H every 8 hours. To transfuse if hemoglobin is below 8 as the patient has some chest discomfort currently. I discussed the case with Dr. Faria. Dr. Faria will have EGD evaluation today. 2. Gastrointestinal bleed, most likely upper gastrointestinal bleed. Please see problem #1. PATIENT'S NAME: MARLENE WHATLEY [facility] AGE: 71 Y [address] ROOM: [address] [place], [place] [address] LOCATION: [facility] ADMIT DATE: 12/23/2016 History & Physical DISCHARGE DATE: FAMILY PHYSICIAN: PHYSICIAN, UNKNOWN ATTENDING PHYSICIAN: Ted GONZALEZ 3. Chest discomfort. Chest pain somewhat typical in terms of the quality and its association with exertion and some shortness of breath. Initial EKG and troponin are unremarkable. We want to keep hemoglobin above 8. To request cardiac catheterization information from outside hospital. The patient has already received Plavix and aspirin today at home. We will hold antiplatelets as the patient is having gastrointestinal bleed currently. We will await for the Gastroenterology's recommendation in terms of anti-platelet use, so hopefully the patient will be okay to use aspirin for now. We will trend cardiac enzymes. Also discussed the case with Dr. Diaz, who actually is supposed to see the patient as an outpatient at [place]. Keep the patient on telemonitor. 4. Shortness of breath. Etiology most likely secondary to anemia; however, might have underlying chronic obstructive pulmonary disease. We will continue bronchodilator. We will acquire chest x-ray and proBNP. 5. Chronic obstructive pulmonary disease. Continue bronchodilator. 6. Benign prostatic hypertrophy. Continue meds. 7. Diabetes mellitus type 2, stable. We will hold metformin. We will start the patient on SSI. Greater than 70 minutes was spent on patient care. Greater than 50% of the time was spent on direct patient care. Case was discussed with Cardiology and GI. Assessment and plan were discussed with the patient also. Code status was discussed on admission. Code status: Full code. MD CYDNEY WILLIAMSON/irving /[id number] D: T: 301 HISTORY & PHYSICAL
--- NOTE | ~2016-12-23 | CON ---
PATIENT'S NAME: CHACORTA HAYDEE [facility] AGE: 71 Y [address] ROOM: [address] [place], [place] [address] LOCATION: [facility] ADMIT DATE: 12/23/2016 Consultation DISCHARGE DATE: FAMILY PHYSICIAN: PHYSICIAN, UNKNOWN ATTENDING PHYSICIAN: Ted GONZALEZ DATE OF CONSULTATION: 12/23/2016 REASON FOR CONSULTATION: GI bleed. HISTORY OF PRESENT ILLNESS: This is a pleasant 71-year-old gentleman with a past medical history of diabetes mellitus, type 2; COPD; BPH; and history of TIA. The patient was transferred from [place], [place], for suspected upper GI bleed secondary to low hemoglobin. The patient reports, on December 19, he was feeling dyspnea on exertion with chest discomfort. The patient retreated to his primary care and was treated with a bronchodilator. He was discharged on doxycycline, prednisone, and a bronchodilator. He stated, after being dismissed, he began to feel much worse and ultimately had a black, tarry stool on Tuesday. He did also state that he had associated nausea with this, though denies any vomiting or hematemesis with it. His symptoms continued on with accompanying chest discomfort, pressure like, nonradiating, that resolved with rest. He was seen in the emergency room in [place] and found to have a hemoglobin of 7.0. The patient initially was given 4 pills of 81 mg aspirin on admission as it was thought to be related to heart issue on initial presentation. He does take Plavix at home due to history of TIA. The patient denies any productive cough, fevers, chills, or change in bowel habits except for the melenic stool on Tuesday. He does report that he has not had any stool since the initial melenic stool. He does complain of some mid epigastric discomfort as well as left upper quadrant pain, though denies any radiation or rebound. PAST MEDICAL HISTORY: Diabetes mellitus, type 2; COPD; BPH; and TIA. PAST SURGICAL HISTORY: Tonsillectomy, coronary angiogram done at the [place] a year and a half ago that apparently was negative. 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 Does not currently smoke. Does admit to smoking approximately 25 years ago, with occasional alcohol use. FAMILY HISTORY: PATIENT'S NAME: CHACORTA HAYDEE [facility] AGE: 71 Y [address] ROOM: [address] [place], [place] [address] LOCATION: [facility]PCU ADMIT DATE: 12/23/2016 Consultation DISCHARGE DATE: FAMILY PHYSICIAN: PHYSICIAN, UNKNOWN ATTENDING PHYSICIAN: Ted GONZALEZ The patient's father had GBM. The patient's mother had diabetes mellitus. ALLERGIES: NO KNOWN MEDICATION ALLERGIES. CURRENT MEDICATIONS: Please refer to the medication administration record. Significant for Plavix, with the last dose being on 12/22/2016. REVIEW OF SYSTEMS: All-point review of systems was completed, all were negative except for those identified in the History of Present Illness. PHYSICAL EXAMINATION: GENERAL: A pleasant 71-year-old gentleman who appears to be in no acute distress. VITAL SIGNS: Temperature 97.8, pulse is 63, respirations of 20, blood pressure 128/64, and oxygen saturation is 99% on 2 L nasal cannula. SKIN: Slightly pale, warm, and dry. No jaundice. HEENT: Head is normocephalic and atraumatic. Pupils are equal, round, and reactive to light. Sclerae are clear, nonicteric. Oral mucosa is pink and moist. No thyromegaly. NECK: Soft and supple. CARDIOVASCULAR: Regular. Normal S1 and S2. RESPIRATORY: Respirations even and unlabored. LUNGS: Clear to auscultation. ABDOMEN: Soft and round. Mildly tender in the midepigastric area as well as the left upper quadrant. No rebound, rigidity, or guarding noted. Bowel sounds are positive. MUSCULOSKELETAL: No muscle weakness or atrophy. EXTREMITIES: No clubbing, cyanosis, or edema. NEUROLOGIC: Grossly nonfocal. LABORATORY AND DIAGNOSTIC DATA: Laboratory obtained at [place] prior to transfer was reviewed. It does appear that the patient's hemoglobin was 7, platelets of 116, and white blood cells 6.8. Sodium 140, potassium of 3.4, CO2 of 19, BUN of 25, creatinine of 1.05, and glucose of 75. EKG showed normal sinus with first-degree AV block. Cardiac enzymes at the outside facility were negative. ASSESSMENT AND PLAN: Again, this is a very pleasant 71-year-old gentleman who was recently transferred with suspected upper gastrointestinal bleed. 1. Acute blood loss anemia. Etiology is likely related to upper gastrointestinal tract with recent melenic stool as well as home aspirin PATIENT'S NAME: MARLENE WHATLEY [facility] AGE: 71 Y [address] ROOM: [address] [place], [place] [address] LOCATION: [facility] ADMIT DATE: 12/23/2016 Consultation DISCHARGE DATE: FAMILY PHYSICIAN: PHYSICIAN, UNKNOWN ATTENDING PHYSICIAN: Ted GONZALEZ and Plavix and currently on doxycycline and prednisone. The patient was given Protonix, as this should be continued. We will go forth with an upper endoscopy for further evaluation. This was discussed in depth with the patient, and he verbalizes understanding. 2. Gastrointestinal bleed. Again, likely secondary to causes of acute blood loss anemia. Risks, benefits, and alternatives of the upper endoscopy were discussed with the patient per Dr. Maren Faria. Further recommendations to be given status post upper endoscopy. Thank you for this consult. ZACH BAHENA APRN FOR MD KALEN STREN/modl /[id number] d: 12/24/16 1157 t: 12/30/16806, CONSULTATION REPORT
--- NOTE | ~2016-12-23 | DS ---
PATIENT'S NAME: MARLENE WHATLEY [facility] AGE: 71 Y [address] ROOM: [address] [place], [place] [address] LOCATION: GPCU ADMIT DATE: 12/23/2016 Discharge Summary DISCHARGE DATE: 12/25/2016 FAMILY PHYSICIAN: Laurel Tafoya MD ATTENDING PHYSICIAN: Ted Hu FINAL DIAGNOSES: 1. Upper gastrointestinal bleed secondary to gastric ulcers. 2. Acute blood loss anemia. 3. History of transient ischemic attack. 4. Chest pain. 5. Diabetes mellitus type 2. 6. Chronic obstructive pulmonary disease. PROCEDURES: EGD on December [address] Faria. Cardiolite stress test, December 24, with Dr. Diaz. For details of admission, please see the history and physical. In short, the patient was transferred after presenting to the outside facility with a low hemoglobin. He was given 1 unit transfusion and then sent here for further evaluation. LABORATORY DATA: On admission; sodium 144, potassium 3.9, chloride 112, CO2 of 24, BUN 15, creatinine 0.9. Liver enzymes were normal. GFR 85, these all remained stable on the second hospital day. Magnesium was 2 on the second hospital day. Hemoglobin on admission was 7.5, these were trended every 8 hours and bumped up to the 8 range and stayed there, most prior to discharge it was 9, white blood cell count on admission was 5.9, platelet count 110. Chest x-ray on admission done for shortness of breath, did not show any acute changes. HOSPITAL COURSE: The patient was accepted in transfer and admitted to PCU. The patient was seen on arrival. He was started on IV Protonix drip and was given IV hydration. GI was asked to see the patient and they did feel that he would need an EGD. Dr. Faria did perform the EGD on the evening of December 23. At that time, we did find three ulcers. He did feel that we could change the Protonix to IV push every 12 hours. He did stop the Plavix, but said the patient could be on baby aspirin. He was started on a clear liquid diet. His hemoglobin did drop a little bit further and he received one more unit of packed red blood cells. On the morning of the , the patient was feeling much better. His hemoglobin had been stable. He was not having any chest pain, chest pressure, did undergo a Cardiolite stress test that did return negative. The patient was monitored overnight. His diet was advanced. He was able to tolerate without any difficulty. The patient was felt to be stable for discharge. PATIENT'S NAME: MARLENE WHATLEY [facility] AGE: 71 Y [address] ROOM: [place] [address] LOCATION: GPCU ADMIT DATE: 12/23/2016 Discharge Summary DISCHARGE DATE: 12/25/2016 FAMILY PHYSICIAN: Laurel Tafoya MD ATTENDING PHYSICIAN: Ted Hu DISCHARGE INSTRUCTIONS: The patient was discharged to home. He will need to see GI in 3 weeks, Dr. Rodriguez, his primary care provider in 3-[address] Diaz in [place] in 2-3 weeks. Samanta from the hospitalist's office will call him with those appointments. MEDICATIONS: 1. Allopurinol 100 mg at bedtime. 2. Aspirin 81 mg daily. 3. Lipitor 80 mg daily. 4. Nizoral cream to folds for yeast as needed. 5. Effexor XR 75 mg at bedtime. 6. DuoNeb inhaled three times daily. 7. Symbicort 160/4.5 two puffs twice daily. 8. Cozaar 50 mg at bedtime. 9. Nitrostat p.r.n. chest pain. 10. Tylenol 650 mg every 6 hours as needed. 11. Glucophage 1700 mg at bedtime. 12. Hytrin 2 mg at bedtime. 13. Ultram 100 mg every 6 hours as needed for pain. 14. Combivent inhaler three times daily as needed. 15. Protonix 40 mg twice daily. 16. Ferrous sulfate 325 mg twice daily. PROGNOSIS: Overall, prognosis at discharge was good. ROSE HODGE MD LAW/modl /[id number] CC: MD mark Mobley: 12/25/162017 t: 12/30/16 1547, DISCHARGE SUMMARY
--- NOTE | ~2016-12-23 | ECHO ---
Transthoracic Echocardiography Report (TTE) Demographics Patient Name MARLENE WHATLEY Date of Study 12/24/2016 Patient Number [id number] Visit Number [id number] Date of 1945 Room Number G6310 Gender Male Number Age 71 year(s) Referring Joe Segundo Machine Pack Assembler Gu[employer]arns RDCS, Physician A RVT, RDMS, PROGRAM ENGINEER Physician Interpreting Joe Segundo Neon Sign Erector Physician A Supervising Ordering Mayte Jean MD/MLP Physician Nurse Stress Community Outreach Worker Conclusions Contractility Score Summary Normal Left Ventricular contractility was noted. Summary The estimated left ventricular ejection fraction is 65%. The left ventricle is normal in size . Moderate concentric left ventricular hypertrophy. Diastolic assessment reveals Grade II pseudonormal diastolic function . Normal left ventricular systolic function. The left atrium is moderately dilated by LA volume index measurement. The right atrium is mildly dilated. Dilated IVC with poor inspiratory collapse consistent with elevated RA pressure. Moderate mitral regurgitation by color Doppler. Severe mitral annular calcification. Mild calcification of the mitral valve. Mild mitral valve stenosis. The mean gradient is 4 mmHg. The aortic valve is severely sclerotic. There is focal calcification on the non coronary cusp. There is trivial aortic regurgitation by color Doppler. Mild-moderate tricuspid regurgitation by color Doppler. There is mild pulmonary hypertension. The pulmonary pressure (RVSP) is 47 mmHg. The ascending aorta appears mildly dilated. The maximum diameter measures 4.0 cm. Procedure Type of Study TTE procedure:2D Echocardiogram, M-Mode, Doppler , Color Doppler. Procedure Date Date: 12/24/2016 Start: 07:09 AM Study Location: Inpatient Portable Technical Quality: Adequate visualization Appropriate Use Criteria: 9 Patient Status: Routine Rhythm: Sinus arrhythmia HR: 58 bpm BP: 143/73 mmHg M-Mode/2D Measurements LV Diastolic Dimension: 4.4 cm LV Systolic Dimension: 2.14 cm LV Septum Diastolic: 1.48 cm LV PW Diastolic: 1.44 cm AO Root Dimension: 3.1 cm AV Cusp Separation: 2.3 cm RV Diastolic Dimension: 2.65 cm LA Dimension: 4 cm EF Estimated: 70 % LA volume: 109 ml RV Base: 3.5 cm LVOT: 2 cm RV Mid: 3.2 cm RV Length: 6.5 cm TAPSE: 2.7 cm TDI-S': 15 cm/s Doppler Measurements AV Peak Velocity: 2.15 m/s MV Peak E-Wave: 1.76 m/s AV Peak Gradient: 18.49 mmHg MV Peak A-Wave: 1.21 m/s AV Mean Gradient: 10 mmHg MV E/A Ratio: 1.45 LVOT Peak Velocity: 1.51 m/s MV P1/2t: 133 msec MV Mean Gradient: 4 mmHg TR Velocity:3.03 m/s TR Gradient:36.72 mmHg MV Deceleration Time: 398 msec Estimated RVSP: 45 mmHg PV Peak Velocity: 1.02 m/s E' Septal Velocity: 0.09 m/s PV Peak Gradient: 4.16 mmHg E' Lateral Velocity: 0.08 m/s Estimated PASP: 44.72 mmHg A' Septal Velocity: 0.09 m/s Findings Left Ventricle The left ventricle is normal in size . Moderate concentric left ventricular hypertrophy. Diastolic assessment reveals Grade II pseudonormal diastolic function . Normal left ventricular systolic function. Right Ventricle Normal right ventricle structure and function. Left Atrium The left atrium is moderately dilated by LA volume index measurement. Right Atrium The right atrium is mildly dilated. Dilated IVC with poor inspiratory collapse consistent with elevated RA pressure. Mitral Valve Moderate mitral regurgitation by color Doppler. Severe mitral annular calcification. Mild calcification of the mitral valve. Mild mitral valve stenosis. The mean gradient is 4 mmHg. Aortic Valve The aortic valve is severely sclerotic. There is focal calcification on the non coronary cusp. There is trivial aortic regurgitation by color Doppler. Tricuspid Valve Mild-moderate tricuspid regurgitation by color Doppler. There is mild pulmonary hypertension. The pulmonary pressure (RVSP) is 47 mmHg. Pulmonic Valve Normal pulmonic valve structure and function. Trivial pulmonic valve regurgitation by color Doppler. Pericardial Effusion No evidence of pericardial effusion. Miscellaneous The ascending aorta appears mildly dilated. The maximum diameter measures 4.0 cm. Pleural Effusion No evidence of pleural effusion. Signature dtt: Bonnie Diaz dtd: 12/24/16 0709 Physician Self Edit
[~2016-12-23 13:00] MED LIST changes: -ASPIRIN (CHILDR81 MG PO; -DELTASONE20 MG PO; -DOXYCYCLINE100 MG PO; -FEOSOL325 MG PO; -PROTONIX40 MG PO; -ZITHROMAX250 MG PO
[2016-12-23] MEDS ORDERED: DELTASONE20 MG PO (15:45)
[2016-12-23] MEDS ORDERED: ZITHROMAX250 MG PO (15:46)
[2016-12-23] MEDS ORDERED: DOXYCYCLINE100 MG PO (15:47)
--- NOTE | 2016-12-23 17:12 | NUR ---
Significant Event:pt arrived from [place] by amb. Pt had more short of breath and some left cp on/off since sun, was on couple meds but did not help, pt back in to clinic HGB 6.8 today. 1unit prbcs given enroute. Pt has been on plavix for TIA. EKG ok, first enzyme neg cardiac. Pt had alittle discomfort when amb to bathroom but went away. 02 2liters, but not at home. Pt talked to on phone. Pt was on protonix drip. Tarry stool on Tuesday. Ntgx1 on tuesday bp went down. Pt went to EGD at 1635 tonight. We are to check H&H q8h, enzymes q6h, 1st ones at 1800 if pt back. Follow up:
[2016-12-23 18:06] LABS: HEMATOCRIT 22.3 % (37.0-53.0)
[2016-12-23 18:08] LABS: HEMOGLOBIN 7.5 g/dL (11.0-16.0)
[2016-12-23 18:25] LABS: CPK 50 IU/L (35-332)
[2016-12-24 00:25] LABS: CPK 54 IU/L (35-332)
[2016-12-24 02:12] LABS: HEMATOCRIT 24.2 % (37.0-53.0); HEMOGLOBIN 8.4 g/dL (11.0-16.0)
--- NOTE | 2016-12-24 05:03 | NUR ---
Significant Event: DENIES PAIN ALL NIGHT. NPO AFTER MIDNIGHT FOR STRESS TEST THIS AM. REMAINS ON ROOM AIR. GOOD UO. 1 UNIT BLOOD GIVEN. NO STOOLS THIS SHIFT. Follow up:
[2016-12-24 06:33] LABS: BASOPHIL % 0.3 %; EOSINOPHIL # 0.4 K/uL (0.0-0.5); EOSINOPHIL % 6.1 %; HEMATOCRIT 24.3 % (37.0-53.0); HEMOGLOBIN 8.4 g/dL (11.0-16.0); IMMATURE GRANULOCYTE # 0.1 K/uL (0.0-0.3); LYMPHOCYTE # 1.4 K/uL (0.8-4.0); LYMPHOCYTE % 23.6 %; MCHC 34.6 gm/dL (32.0-36.5); MCV 89.7 fl (83.0-98.0); MONOCYTE # 0.3 K/uL (0.0-1.0); MONOCYTE % 5.1 %; NEUTROPHIL # (ANC) 3.8 K/uL (1.4-9.0); NEUTROPHIL % 63.9 %; NRBC % 0 /100WBC (0-0.00); PLATELET COUNT 110 K/uL (150-450); RDW-CV 15.9 % (11.9-14.6); WBC 5.9 K/uL (4.0-11.0)
[2016-12-24 06:35] LABS: RBC 2.71 M/uL (3.50-5.50)
[2016-12-24 06:58] LABS: CPK 49 IU/L (35-332)
[2016-12-24 07:03] LABS: ALBUMIN 3.2 gm/dL (3.5-5.0); ANION GAP 11.9 (10.0-19.0); CALCIUM 8.5 mg/dL (8.5-10.5); CREATININE 0.9 mg/dL (0.6-1.3); POTASSIUM 3.9 mMol/L (3.7-5.1); TOTAL PROTEIN 5.7 g/dL (6.0-8.4)
[2016-12-24 10:59] LABS: HEMATOCRIT 24.8 % (37.0-53.0)
[2016-12-24 11:03] LABS: HEMOGLOBIN 8.6 g/dL (11.0-16.0)
--- NOTE | 2016-12-24 12:45 | NUR ---
Introduced self and role of care management to patient. Patient lives in [facility] his and 3 teenage children. He has 5 other children ages 19-29. He plans home when ready for discharge. He uses a cane at home. Says his is disabled so he does alot of the cooking, cleaning, etc. Does not anticipate discharge needs at this time. Will follow.
--- NOTE | 2016-12-24 13:08 | NUR ---
Received phone message from Madison, bed coordinator at [facility] in [place], . Called her back, they have no beds today, gave her update of pt condition from nursing shift summaries, she said she would call back on Tuesday to get an update.
--- NOTE | 2016-12-24 16:18 | NUR ---
Significant Event: PATIENT AFEBRILE. VSS. 02 94-95% ON RA. BP 126-143. PATIENT LEFT FLOOR X2 TODAY FOR LEXISCAN. MOST RECENT HH TODAY WAS 8.6. PATIENT CURRENTLY ON CLEAR LIQUID DIET. WILL BE ADVANCED TO SOFT DIET TOMORROW AM. PATIENT IS STANDBY ASSIST. PATIENT IS ALERT AND ORIENTED BUT WILL GET OUT OF BED AND DISCONNECT HIMSELF FROM TELE TO USE THE RESTROOM CAUSING THE BED ALARM TO GO OFF. IVS TO R) WRIST AND L) FOREARM BOTH FLUSH WELL BUT HAVE NO BLOOD RETURN. PATIENT HAS COMPLAINED THIS SHIFT OF L) SIDED ABDOMINAL PAIN OF 3 ON A SCALE OF 0-10 THAT RESOLVED. PATIENT ALSO COMPLAINED OF LEFT KNEE PAIN OF 4 ON A SCALE OF 1-10. PATIENT DENIED WANTING PAIN MEDS THIS SHIFT. PATIENT HAS DYSPNEA WITH ACTIVITY AND LUNG SOUNDS ARE DIMINISHED IN THE BASES BILATERALLY. ACCUCHECKS THIS SHIFT HAVE REQUIRED NO INSULIN PER SLIDING SCALE. Follow up:
[2016-12-24 16:52] LABS: HEMATOCRIT 24.9 % (37.0-53.0); HEMOGLOBIN 8.6 g/dL (11.0-16.0)
--- NOTE | 2016-12-25 04:47 | NUR ---
Significant Event: PATIENT IS A/O X3 BUT FORGETFUL AT TIMES. VSS. HR 50-60'S. SBP 120-130'S. AFEBRILE. 02 SATS IN MID 90'S ON RA. C/O PAIN TO LEFT KNEE BUT PATIENT STATES TOLERABLE AND CHRONIC. LUNGS CLEAR/DIM THROUGHOUT. UP WITH SBA. BOWELS HYPOACTIVE. HAS ONE BM AND PATIENT STATES PARTIALLY BLACK AND LIKE COFFEE GROUNDS. C/O URGENCY TO VOID. NOTICED WHITE SEDIMENT WITH ONE THE VOIDS. HAS REDNESS TO GROINS, ABDOMINAL FOLDS, AND SCROTUM. OPEN TO AIR AND MEDICAL CREAM APPLIED. IV TO RIGHT FOREARM AND LEFT AC BOTH SL. ON ACHS ACCUCHECKS. Follow up: CONTINUE TO MONITOR PER PLAN OF CARE. POSSBILY HOME IF HGB MORE STABLE.
[2016-12-25 05:48] LABS: HEMATOCRIT 26.3 % (37.0-53.0)
[2016-12-25 06:13] LABS: ALBUMIN 3.3 gm/dL (3.5-5.0); ANION GAP 10.6 (10.0-19.0); CALCIUM 8.6 mg/dL (8.5-10.5); PHOSPHORUS 3.6 mg/dL (2.5-4.9); POTASSIUM 3.6 mMol/L (3.7-5.1)
[2016-12-25] MEDS ORDERED: ASPIRIN (CHILDR81 MG PO (11:45)
[2016-12-25] MEDS ORDERED: PROTONIX40 MG PO (11:56)
[2016-12-25] MEDS ORDERED: FEOSOL325 MG PO (12:01)
--- NOTE | 2016-12-25 13:41 | NUR ---
DISM. NOTE: REVIEW OF HOME MEDS AND NEW MEDS WITH HANDOUTS AND SIDE EFFECTS DISCUSSED. PRESCRIPTIONS GIVEN. A/O X 3. DIET/ ACTIVITY FOLLOW UP APPT. HANDOUT: GASTRIC ULCERS PT. VOICED UNDERSTANDING.
== END 2016-12-25 14:30 | disposition disaster alternative care site (69) | DRG 378 ==
LOC: GPCU 14:53
PROVIDERS: Internal Medicine; ADMIT Internal Medicine
PROC: 0DB48ZX Excision of Esophagogastric Junction, Via Natural or Artificial Opening Endoscopic, Diagnostic (ICD-10-PCS; principal; 2016-12-23)
PROC: 30233N1 Transfusion of Nonautologous Red Blood Cells into Peripheral Vein, Percutaneous Approach (ICD-10-PCS; principal; 2016-12-23)
DX: K25.4 Chronic or unspecified gastric ulcer with hemorrhage (principal); D62 Acute posthemorrhagic anemia; J44.9 Chronic obstructive pulmonary disease, unspecified; E11.9 Type 2 diabetes mellitus without complications; Z86.73 Personal history of transient ischemic attack (TIA), and cerebral infarction without residual deficits; N40.0 Benign prostatic hyperplasia without lower urinary tract symptoms; Z87.891 Personal history of nicotine dependence; Z79.82 Long term (current) use of aspirin; Z79.51 Long term (current) use of inhaled steroids; Z79.84 Long term (current) use of oral hypoglycemic drugs
CPT/HCPCS: A9500; C9113; J2785; J7030; J7050; P9016